=== PATIENT | female | born 1980 | race Caucasian/White ===

== ENCOUNTER → 2019-05-27 | Outpatient (CLI) | payer BC ==
--- NOTE | 2019-05-28 09:01 | MM ---
Reason for exam: screening (asymptomatic). Baseline mammogram. History: Took hormonal contraceptives beginning at age 17. Physical Findings: Nurse did not find any significant physical abnormalities on exam. MG 3D Screening Mammo W/Cad Bilateral CC and MLO view(s) were taken. The breast tissue is heterogeneously dense. This may lower the sensitivity of mammography. There is no discrete abnormality. These results were verbally communicated with the patient and result sheet given to the patient on 05/27/19. ASSESSMENT: Negative, BI-RAD 1 RECOMMENDATION: Routine screening mammogram of both breasts in 1 year.
== END | disposition home or self-care (01) ==
LOC: RADMAMWWP 15:25
PROVIDERS: ATTEND Obstetrics & Gynecology Obstetrics
DX: Z12.31 Encounter for screening mammogram for malignant neoplasm of breast (principal)
CPT/HCPCS: 77063; 77067

== ENCOUNTER 2024-03-30 20:28 | Emergency (ER) | payer BC ==
[2024-03-30 21:21] VITALS: TEMP 97.8
--- NOTE | 2024-03-30 21:29 | XR ---
EXAMINATION TYPE: XR forearm LT DATE OF EXAM: 03/30/2024 9:11 PM CLINICAL INDICATION:Female, 44 years old with history of fall; [facility] COMPARISON: None TECHNIQUE: XR forearm LT; forearm was examined in AP and lateral projections. FINDINGS/IMPRESSION: Transverse fracture through the left radius diaphysis with complete displacement and shortening up to 11 mm.
[2024-03-30] MEDS: HYDROmorphone 1 MG/ML 1 ML SYRINGE IM STA (21:32)
[2024-03-30] MEDS: KETOROLAC 15 MG/ML 1 ML VIAL IM STA (21:32)
--- NOTE | 2024-03-30 22:05 | ED ---
Upper Extremity HPI - General Chief Complaint: Extremity Injury, Upper Stated Complaint: left arm injury Time Seen by Provider: 03/30/24 20:50 Source: patient Mode of arrival: ambulatory Limitations: no limitations - History of Present Illness Initial Comments: 44-year-old female presenting with chief complaint of left forearm injury. Patient was playing softball when she tripped over someone landing onto her forearm. Pain is mainly over the midshaft area. There is obvious deformity to the area. She is having no numbness or tingling. She is able to move her fingers but it does cause a great deal of pain. - Related Data Previous Rx's Medication Instructions Recorded HYDROcodone/APAP 7.5-325MG [[place] 1 tab PO Q4H PRN 3 Days #18 tab 03/31/24 7.5-325] Allergies Allergy/AdvReac Type Severity Reaction Status Date / Time No Known Allergies Allergy Verified 03/30/24 20:39 Review of Systems ROS Statement: Those systems with pertinent positive or pertinent negative responses have been documented in the HPI. ROS Other: All systems not noted in ROS Statement are negative. Past Medical History Past Medical History: Hypertension Past Surgical History: Orthopedic Surgery Past Psychological History: Anxiety Smoking Status: Never smoker Past Alcohol Use History: None Reported Past Drug Use History: None Reported General Exam Limitations: no limitations General appearance: alert, in no apparent distress Head exam: Present: atraumatic, normocephalic Eye exam: Present: normal appearance, EOMI Neck exam: Present: normal inspection. Absent: meningismus Respiratory exam: Absent: respiratory distress Left Forearm Wrist exam: Present: tenderness, deformity. Absent: full ROM Neurological exam: Present: alert, oriented X3 Psychiatric exam: Present: normal affect, normal mood Skin exam: Present: warm, dry Course Vital Signs 03/30/24 03/30/24 03/30/24 20:35 21:50 22:45 Temperature 97.8 F Pulse Rate 104 H 86 80 Respiratory 20 18 19 Rate Blood Pressure 108/76 133/95 131/97 O2 Sat by Pulse 97 98 100 Oximetry 03/30/24 03/30/24 03/30/24 22:53 22:57 22:58 Temperature Pulse Rate 84 80 77 Respiratory 21 16 18 Rate Blood Pressure 129/111 122/90 113/75 O2 Sat by Pulse 100 100 100 Oximetry 03/30/24 03/30/24 03/30/24 23:06 23:21 23:27 Temperature Pulse Rate 84 84 82 Respiratory 18 23 18 Rate Blood Pressure 128/86 132/80 116/83 O2 Sat by Pulse 100 100 100 Oximetry 03/31/24 00:45 Temperature Pulse Rate 82 Respiratory 18 Rate Blood Pressure 127/87 O2 Sat by Pulse 98 Oximetry Procedures - Orthopedic Fracture Reduction Fracture #1 Consent Obtained: verbal consent, written consent Side: left Fracture Reduction Location: radius Analgesia: procedural sedation Technique: direct manipulation Post Reduction X-rays Demonstrate: other (Improved from previous) Post-Reduction Neuro Exam: intact Post-Reduction Vascular Exam: intact Splint Applied: Yes Patient Tolerated Procedure: well Medical Decision Making - Medical Decision Making Was pt. sent in by a medical professional or institution (Dr. PA, [employer]ICAL [employer] DRILL OPERATOR, urgent care, hospital, or retirement...) When possible be specific @ -No Did you speak to anyone other than the patient for history (EMS, parent, family, police, friend...)? What history was obtained from this source @ -No Did you review nursing and triage notes (agree or disagree)? Why? @ -I reviewed and agree with nursing and triage notes Were old charts reviewed (outside hosp., previous admission, EMS record, old EKG, old radiological studies, urgent care reports/EKG's, retirement records)? Report findings @ -No old charts were reviewed Differential Diagnosis (chest pain, altered mental status, abdominal pain women, abdominal pain men, vaginal bleeding, weakness, fever, dyspnea, syncope, headache, dizziness, GI bleed, back pain, seizure, CVA, palpatations, mental health, musculoskeletal)? @ -Differential Musculoskeletal Muscular strain, contusion, ligament sprain, fracture, arthritis, septic arthritis, bursitis, cellulitis, muscle spasm, nerve compression, DVT, arterial occlusion, herpes zoster, electrolyte abnormality, tumor.... This is not meant to be in all inclusive list EKG interpreted by me (3pts min.). @ -As above X-rays interpreted by me (1pt min.). @ -X-ray shows transverse fracture through the left radius diaphysis with complete displacement and shortening up to [address] interpreted by me (1pt min.). @ -None done U/S interpreted by me (1pt. min.). @ -None done What testing was considered but not performed or refused? (CT, X-rays, U/S, labs)? Why? @ -None What meds were considered but not given or refused? Why? @ -None Did you discuss the management of the patient with other professionals (professionals i.e. , PA, [employer] D[employer] OPERATOR, lab, RT, psych nurse, aids social worker, retina subspecialist, teacher, credit or loans officer, director case management)? Give summary @ -I spoke with with Dr. Flannery who advised splint placement and follow-up in the office Was smoking cessation discussed for >3mins.? @ -No Was critical care preformed (if so, how long)? @ -No Were there social determinants of health that impacted care today? How? (Homelessness, low income, unemployed, alcoholism, drug addiction, transportation, low edu. Level, literacy, decrease access to med. care, [facility], rehab)? @ -No Was there de-escalation of care discussed even if they declined (Discuss DNR or withdrawal of care, Hospice)? DNR status @ -No What co-morbidities impacted this encounter? (DM, HTN, Smoking, COPD, CAD, Cancer, CVA, ARF, Chemo, Hep., AIDS, mental health diagnosis, sleep apnea, morbid obesity)? @ -None Was patient admitted / discharged? Hospital course, mention meds given and route, prescriptions, significant lab abnormalities, going to OR and other pertinent info. @ -44-year-old female presenting with chief complaint of left forearm injury. X-ray shows displaced and shortened fracture of the radius. Conscious sedation was utilized and reduction of the fracture was attempted with my attending Dr. Parisi. Postreduction x-rays show some improvement, complete reduction was not achieved. I spoke with Dr. Flannery who advised splint placement and follow-up in the office. Patient was observed for over 1 hour after the procedure. Educated on management and follow-up. Discharged home. Follow-up with PCP. Report back to ER with any new or worsening symptoms. Discussed return parameters and answered all questions. Patient conveyed verbal understanding and agreed to the plan. I discussed this case in detail with my attending Dr. Parisi Undiagnosed new problem with uncertain prognosis? @ -No Drug Therapy requiring intensive monitoring for toxicity (Heparin, Nitro, Insulin, Cardizem)? @ -No Were any procedures done? @ -Conscious sedation, reduction of fracture Diagnosis/symptom? @ -Radial fracture Acute, or Chronic, or Acute on Chronic? @ -Acute Uncomplicated (without systemic symptoms) or Complicated (systemic symptoms)? @ -Uncomplicated Side effects of treatment? @ -No Exacerbation, Progression, or Severe Exacerbation? @ -No Poses a threat to life or bodily function? How? (Chest pain, [place], [place], pneumonia, PE, COPD, DKA, ARF, appy, cholecystitis, CVA, Diverticulitis, Homicidal, Suicidal, threat to staff... and all critical care pts) @ -No Disposition Clinical Impression: Radius fracture Disposition: HOME SELF-CARE Condition: Fair Instructions (If sedation given, give patient instructions): Arm Fracture in Adults (ED) Additional Instructions: Follow-up with orthopedics. Report back to ER with any new or worsening symptoms. Prescriptions: HYDROcodone/APAP 7.5-325MG [[place] 7.5-325] 1 tab PO Q4H PRN 3 Days #18 tab PRN Reason: Pain Is patient prescribed a controlled substance at d/c from ED?: Yes When asked, does pt state using other controlled substances?: No If prescribed controlled substance>3 days was MAPS reviewed?: Prescribed <3 Days If opioid is for acute pain is fill amount 7 days or less?: Yes Referrals: Yong Burgess DO [Primary Care Provider] - 1-2 days Charlie Flannery MD [Medical Doctor] - 1-2 days Time of Disposition: 00:17
[2024-03-30] MEDS: PROPOFOL 10 MG/ML 20 ML VIAL IV ONE (22:40)
[2024-03-30] MEDS: HYDROmorphone 1 MG/ML 1 ML SYRINGE IVP STA (22:42)
[2024-03-30 23:13] VITALS: RESP 18
--- NOTE | 2024-03-30 23:51 | XR ---
EXAMINATION TYPE: XR forearm LT DATE OF EXAM: 03/30/2024 CLINICAL HISTORY: Reduction TECHNIQUE: Two views of the left forearm are obtained. COMPARISON: Left forearm x-ray earlier today FINDINGS: Persistent dorsal displacement of distal fracture fragment after attempted reduction in the mid to distal diaphysis fracture of the left radius. Improvement in osseous overlap noted. IMPRESSION: As above.
--- NOTE | 2024-03-30 23:53 | XR ---
EXAMINATION TYPE: XR forearm LT DATE OF EXAM: 03/30/2024 CLINICAL HISTORY: Post reduction TECHNIQUE: Single lateral view of the left forearm is obtained. COMPARISON: Prior x-rays earlier today. FINDINGS: There is new overlying splint material identified which is noted to lower radiographic sens itivity. Acute comminuted fracture mid to distal diaphysis of the left radius redemonstrated with sma ll fracture fragment. There is approximate 6 mm persistent posterior displacement of distal fracture fragment after second attempt at reduction which is improved from approximately 13 mm after first att empted reduction. No new acute displaced fractures are seen. IMPRESSION: As above.
[2024-03-31 00:04] VITALS: PULSE 82
[2024-03-31 01:11] VITALS: BP 127/87
== END 2024-03-31 00:45 | disposition home or self-care (01) ==
LOC: EC 20:28
DX: S52.592A Other fractures of lower end of left radius, initial encounter for closed fracture (principal); W01.0XXA Fall on same level from slipping, tripping and stumbling without subsequent striking against object, initial encounter
CPT/HCPCS: 73090; 25605; 99284; 99152; 96374; 96372 ×2; J1170; J1885; J2704